=== PATIENT | female | born 1980 | race Caucasian/White ===

== ENCOUNTER → 2021-08-29 10:26 | Outpatient (CLI) | payer OTHER, SELFPAY ==
--- NOTE | ~2021-08-29 | MM_ITS ---
EXAMINATION: MM screening [facility] BI w joseph HISTORY: Screening mammogram TECHNIQUE: Craniocaudal and mediolateral oblique 3-D tomosynthesis images were obtained and synthetic 2-D images were generated. CAD analysis was submitted and interpreted. COMPARISON: 04/03/2012 BREAST PARENCHYMAL COMPOSITION: There are scattered areas of fibroglandular density. FINDINGS: RIGHT BREAST: There are possible masses in the middle third of the lower inner breast. LEFT BREAST: Asymmetries are present in the anterior and middle thirds of the slightly inner breast o n the craniocaudal view. IMPRESSION: 1. Bilateral breast findings as described above. 2. Additional mammographic views and possible breast ultrasound are recommended. BI-RADS Category 0: Incomplete: Needs additional imaging evaluation. Reviewed, dictated and finalized at location A. IMPRESSION: 1. Bilateral breast findings as described above. 2. Additional mammographic views and possible breast ultrasound are recommended . BI-RADS Category 0: Incomplete: Needs additional imaging evaluation.
== END ==
PROVIDERS: PCP Family Medicine; Visit Provider Nurse Practitioner
DX: Z12.31 Encounter for screening mammogram for malignant neoplasm of breast (principal); R92.8 Other abnormal and inconclusive findings on diagnostic imaging of breast
CPT/HCPCS: 77063; 77067

== ENCOUNTER → 2021-09-13 08:52 | Outpatient (CLI) | payer OTHER, SELFPAY ==
--- NOTE | ~2021-09-13 | MMUS_ITS ---
EXAMINATION: MM diagnostic [facility] BI w joseph, US breast BI limited HISTORY: 70 possible masses reported in middle third of lower inner right breast asymmetries in the a nterior and middle thirds of slightly inner left breast on 08/29/2021 screening mammogram TECHNIQUE: Additional 3-D tomosynthesis images of both breasts were performed and synthetic 2-D image s were generated. CAD analysis was submitted and interpreted. High resolution bilateral upper inner a nd lower inner breast ultrasound was performed. COMPARISON: 08/29/2021 bilateral screening mammogram FINDINGS: MAMMOGRAPHIC FINDINGS: Approximately 8.5 mm circumscribed mass is suggested in the lower inner right breast (ML Tomosynthesi s image 58/79). Possible 8 mm circumscribed mass in the anterior mid to upper left breast (spot craniocaudal Tomosynt hesis image 48/75). ULTRASOUND: No suspicious mass or shadowing of either breast is detected. Right breast: 300-4:00 6 cm from nipple: Parallel circumscribed septated cyst measuring approximately 2.7 x 11 mm, benign in appearance Left breast: 11:00 3.5 cm from nipple: 4 x 11 mm septated cyst IMPRESSION: 1. Benign findings 2. Routine annual mammographic screening is recommended BI-RADS Category 2: Benign finding(s). Reviewed, dictated and finalized at location A. IMPRESSION: 1. Benign findings 2. Routine annual mammographic screening is recommended BI-RADS Category 2: Benign finding(s).
== END ==
PROVIDERS: PCP Family Medicine; Visit Provider Obstetrics & Gynecology Gynecology
DX: R92.8 Other abnormal and inconclusive findings on diagnostic imaging of breast (principal)
CPT/HCPCS: 76642; 77062; 77066; G0279

== ENCOUNTER → 2022-11-07 14:45 | Outpatient (CLI) | payer OTHER, SELFPAY ==
--- NOTE | ~2022-11-07 | MM_ITS ---
EXAMINATION: MM screening [facility] BI w joseph HISTORY: Screening TECHNIQUE: Craniocaudal and mediolateral oblique 3-D tomosynthesis images were obtained and synthetic 2-D images were generated. CAD analysis was submitted and interpreted. COMPARISON: Comparison to multiple prior studies sequentially, with oldest reviewed study dated 08/2021. BREAST PARENCHYMAL COMPOSITION: Breast composed of scattered areas of fibroglandular density FINDINGS: The right breast is stable without evidence for malignancy. There is a new subtle low densi ty mass in the upper inner quadrant of the left breast anteriorly. IMPRESSION: 1. New left breast mass. 2. Additional mammographic views and possible breast ultrasound are recommended. BI-RADS Category 0: Incomplete: Needs additional imaging evaluation. Reviewed, dictated and finalized at location A. IMPRESSION: 1. New left breast mass. 2. Additional mammographic views and possible breast ultrasound are recommended . BI-RADS Category 0: Incomplete: Needs additional imaging evaluation.
== END ==
PROVIDERS: PCP Obstetrics & Gynecology Gynecology; Visit Provider Obstetrics & Gynecology Gynecology
DX: Z12.31 Encounter for screening mammogram for malignant neoplasm of breast (principal); N63.22 Unspecified lump in the left breast, upper inner quadrant; R92.8 Other abnormal and inconclusive findings on diagnostic imaging of breast
CPT/HCPCS: 77063; 77067

== ENCOUNTER → 2022-12-05 07:52 | Outpatient (CLI) | payer OTHER, SELFPAY ==
--- NOTE | ~2022-12-05 | MMUS_ITS ---
EXAMINATION: MM diagnostic jeffy LT w joseph, US breast LT limited HISTORY: New left breast mass, upper inner quadrant, reported on 11/07/2022 screening mammogram TECHNIQUE: Additional 3-D tomosynthesis images of the left breast were performed and synthetic 2-D im ages were generated. CAD analysis was submitted and interpreted. High resolution upper inner quadrant left breast ultrasound was performed. COMPARISON: 11/07/2022 bilateral screening mammogram 09/13/2021 diagnostic bilateral mammogram and bilateral Limited breast ultrasound FINDINGS: MAMMOGRAPHIC FINDINGS: There is a partially circumscribed approximately 1 cm opacity in the anterior upper inner quadrant of the left breast which appears stable since 09/13/2021. ULTRASOUND: 11:00 3.5 cm from nipple: There is a multi septated cyst measuring approximately 6.4 x 10 mm, with no internal vascularity or posterior shadowing. This appears relatively stable since 09/13/2021 left matthias ast ultrasound examination at which time the lesion measured approximately 5 x 11 mm. IMPRESSION: 1. Benign finding 2. Routine annual mammographic screening is recommended BI-RADS Category 2: Benign finding(s). Reviewed, dictated and finalized at location A. IMPRESSION: 1. Benign finding 2. Routine annual mammographic screening is recommended BI-RADS Category 2: Benign finding(s).
== END ==
PROVIDERS: PCP Obstetrics & Gynecology Gynecology; Visit Provider Obstetrics & Gynecology Gynecology
DX: R92.8 Other abnormal and inconclusive findings on diagnostic imaging of breast (principal)
CPT/HCPCS: 76642; 77061; 77065; G0279

== ENCOUNTER 2023-11-16 00:20 | Day surgery (SDC) | payer OTHER, SELFPAY ==
[2023-10-29 14:14] VITALS: BMI 32.3
[2023-11-16 06:10] VITALS: BP 117/74; PULSE 78; RESP 18; TEMP 35.7; O2SAT 100; BMI 33.3
[2023-11-16] MEDS: LACTATED RINGERS 1,000 ML 150 ML IV CONT (06:29)
--- NOTE | 2023-11-16 06:43 | WPDANESEPPF ---
Anes - Initial Pre Proc Eval Procedure: Operation Date: 11/16/23 07:30 Proposed Procedures p Colonoscopy - Hernán Goodrich MD Date/Time: 11/16/23 06:43 Surgeon: Hernán Goodrich MD Pre Op Diagnosis: Fam. Hx. colon CA Patient Data Age: 43 Gender: F Height: 1.68 m Weight: 93.6 kg Last Vital Signs Temp 96.3 F L 11/16/23 06:10 Pulse 78 11/16/23 06:10 Resp 18 11/16/23 06:10 BP 117/74 11/16/23 06:10 Pulse Ox 100 11/16/23 06:10 O2 Del Method Room Air 11/16/23 06:10 Allergies Allergy/AdvReac Type Severity Reaction Status Date / Time No Known Allergies Allergy Verified 11/16/23 06:18 Home Medications Medication Instructions Recorded Confirmed Type No Home Medications 11/16/23 11/16/23 History Patient hx anesthesia problems: none Family hx anesthesia problems: none Results Review: All pre-operative results and documents have been reviewed as part of the pre-operative evaluation. [facility] Family History Family History Grandparent Family history of malignant neoplasm of breast, Onset Age: 52 Family history of malignant neoplasm of ovary Acute myocardial infarction Family history of malignant neoplasm of uterus, Onset Age: 25 Sibling Carcinoma of colon Social History Social History Smoking status: Never smoker Smoking end date: 03/26/99 Alcohol intake: current Drinks per week: 2 Alcohol use details: social Substance use: never Substance use type: does not use Living arrangements: with family Spiritual care concerns: No Anes - Eval Final PreProcedure Day of Procedure 11/16/23 06:43 Patient weight: overweight Heart: regular rate and rhythm Lungs: clear to auscultation Airway: Mallampati scale class II Neurological: alert and oriented Last oral intake: >/= 8 hours ASA classification: I Emergent: no Anesthetic plan: proceed Anesthesia type and monitoring: general GIVS and standard monitoring Results Review: All pre-operative results and documents have been reviewed as part of the pre-operative evaluation. Family hx of colon ca (sister). Pt active w walking 1 mile, no cp or sob. Informed Consent: The patient's anesthetic plan and its attendant risks and benefits were discussed with the patient/family/POA. Questions were solicited and answers provided to the satisfaction of the patient/family/POA.
--- NOTE | 2023-11-16 07:26 | PM.HPGS ---
History of Present Illness History of Present Illness Consent: Risks, benefits, and alternatives have been discussed and questions answered. Patient agrees to proceed with procedure. Chief complaint: Fam. Hx. colon CA Narrative: Fariha Hernandez is a 43 year old female here for colonoscopy, last one 2018, sister had colon cancer Review of Systems Review of Systems: All systems reviewed & are unremarkable except as noted in HPI and below PMFSH Past Medical History Medical History (Updated 11/16/23 @ 07:26 by Hernán Goodrich MD) Family history of colon cancer Family History Family History Grandparent Family history of malignant neoplasm of breast, Onset Age: 52 Family history of malignant neoplasm of ovary Acute myocardial infarction Family history of malignant neoplasm of uterus, Onset Age: 25 Sibling Carcinoma of colon Social History Social History Smoking status: Never smoker Smoking end date: 03/26/99 Alcohol intake: current Drinks per week: 2 Alcohol use details: social Substance use: never Substance use type: does not use Living arrangements: with family Spiritual care concerns: No Meds Home Medications and Allergies Home Medications Medication Instructions Recorded Confirmed Type No Home Medications 11/16/23 11/16/23 History Allergies Allergy/AdvReac Type Severity Reaction Status Date / Time No Known Allergies Allergy Verified 11/16/23 06:18 Vital Signs Vital Signs - 24 hr 11/16/23 06:10 Temperature 96.3 F L Pulse Rate 78 Respiratory Rate 18 Blood Pressure 117/74 Pulse Oximetry 100 Oxygen Delivery Room Air Exam Const: General: comfortable and no acute distress HENMT: Face/Nose/Sinus: Normal nares present Eyes: General: appearance normal, both eyes and all related structures Neck: Neck: no JVD Resp: Auscultation: clear to auscultation bilaterally Cardio: Rate: regular rate Rhythm: regular rhythm GI: Inspection: non-distended GI Palp: Yes Soft to palpation Skin: General skin exam: normal color Neuro: General: gait normal Speech: normal speech Extrem: General: normal to inspection Psych: Mental Status: mental status grossly normal Assessment and Plan Assessment and plan (1) Family history of colon cancer: Code(s): Z80.0 - Family history of malignant neoplasm of digestive organs Status: Acute Assessment and Plan: colonoscopy
[2023-11-16 07:39] VITALS: BP 98/59; PULSE 70; RESP 20; O2SAT 100
[2023-11-16 07:49] VITALS: BP 110/71; PULSE 73; RESP 18; O2SAT 100
[2023-11-16 07:59] VITALS: BP 112/64; PULSE 71; RESP 20; O2SAT 99
== END 2023-11-16 08:04 | disposition home or self-care (01) ==
PROVIDERS: PCP Family Medicine; Referring Provider Obstetrics & Gynecology Gynecology; Visit Provider Internal Medicine Gastroenterology
PROC: 0DJD8ZZ Inspection of Lower Intestinal Tract, Via Natural or Artificial Opening Endoscopic (ICD-10-PCS; CPT 45378; principal; 2023-11-16 07:30)
DX: Z12.11 Encounter for screening for malignant neoplasm of colon (principal); K64.8 Other hemorrhoids; Z80.0 Family history of malignant neoplasm of digestive organs; Z80.3 Family history of malignant neoplasm of breast; Z80.41 Family history of malignant neoplasm of ovary; Z80.49 Family history of malignant neoplasm of other genital organs; Z82.49 Family history of ischemic heart disease and other diseases of the circulatory system
CPT/HCPCS: 45378; J2704; J7120

== ENCOUNTER 2024-03-21 12:00 | Outpatient (CLI) | payer OTHER, SELFPAY ==
--- NOTE | ~2024-03-21 | MM_ITS ---
EXAMINATION: MM screening [facility] BI w joseph HISTORY: Screening TECHNIQUE: Craniocaudal and mediolateral oblique 3-D tomosynthesis images were obtained and synthetic 2-D images were generated. CAD analysis was submitted and interpreted. COMPARISON: 12/05/2022 and dating back to 08/29/2021 BREAST PARENCHYMAL COMPOSITION: The breasts are heterogeneously dense, which may obscure small masses . FINDINGS: Punctate calcifications detected bilaterally, stable and benign in appearance, dermal in or igin. Stable parenchymal pattern without suspicious microcalcifications, architectural distortion, discrete masses or significant asymmetry. IMPRESSION: 1. No mammographic evidence of malignancy. 2. Recommend routine screening mammography in one year. BI-RADS Category 2: Benign finding(s). Reviewed, dictated and finalized at location A. [employer]
== END 2024-03-21 12:01 | disposition home or self-care (01) ==
LOC: MICIMG 12:01
PROVIDERS: PCP Family Medicine; Visit Provider Obstetrics & Gynecology Gynecology
DX: Z12.31 Encounter for screening mammogram for malignant neoplasm of breast (principal)
CPT/HCPCS: 77063; 77067

== ENCOUNTER 2025-02-02 12:47 | Outpatient (CLI) | payer BC, SELFPAY | END 2025-02-02 12:48 | disposition home or self-care (01) | LOC: ANHAUDIO 12:48 | PROVIDERS: PCP Family Medicine; Visit Provider Nurse Practitioner Adult Health | DX: H90.3 Sensorineural hearing loss, bilateral (principal); H93.8X9 Other specified disorders of ear, unspecified ear; H92.03 Otalgia, bilateral; H93.11 Tinnitus, right ear; Z86.69 Personal history of other diseases of the nervous system and sense organs | CPT/HCPCS: 92557 ==

== ENCOUNTER 2025-03-23 12:43 | Outpatient (CLI) | payer BC, SELFPAY ==
--- NOTE | ~2025-03-23 | MM_ITS ---
EXAMINATION: MM screening [facility] BI w joseph HISTORY: Screening. TECHNIQUE: Craniocaudal and mediolateral oblique 3-D tomosynthesis images were obtained and synthetic 2-D images were generated. CAD analysis was submitted and interpreted. COMPARISON: 2023, 2022, and 2021 BREAST PARENCHYMAL COMPOSITION: Dense: The breasts are heterogeneously dense, which may obscure small masses. FINDINGS: There are findings consistent with the known breast cysts. No suspicious masses are seen. There are no suspicious calcifications. No unexplained architectural distortion is seen. There are no skin or nipple abnormalities identified. There is no adenopathy seen on the images submitted. IMPRESSION: No mammographic evidence to suggest malignancy is seen. The patient may return to screening mammography as per ACR guidelines. BI-RADS 2 - Benign. Reviewed, dictated and finalized at location C. TAILOR
== END 2025-03-23 12:44 | disposition home or self-care (01) ==
PROVIDERS: PCP Obstetrics & Gynecology Gynecology; Visit Provider Obstetrics & Gynecology Gynecology
DX: Z12.31 Encounter for screening mammogram for malignant neoplasm of breast (principal)
CPT/HCPCS: 77063; 77067